=== PATIENT | male | born 1940 ===

== ENCOUNTER → 2017-05-19 | Outpatient (REF) ==
[~2017-05-19] MED LIST: DARVOCET N 101 UDTAB PO; FEOSOL65 MG PO; FOLIC ACID 40400 MCG PO; LISINOPRIL10 MG PO; LOPID600 MG PO; METAMUCIL SMOOT1 PDR PO; METOPROLOL50 MG PO; NEXIUM40 MG PO; NIASPAN500 MG PO; PLAVIX 75MG TAB75 MG PO; RELAFEN500 MG PO; VITAMIN C BUFF500 MG PO
[2017-05-19 16:09] LABS: PSA-TOTAL 1.01 ng/mL (0-4); THYROID STIMULATING HORMONE 2.53 uIU/mL (0.465-4.680)
== END ==
LOC: ZLAB.WCH 14:28
PROVIDERS: Internal Medicine Cardiovascular Disease
DX: Z01.89 Encounter for other specified special examinations (principal)
CPT/HCPCS: G0103

== ENCOUNTER → 2017-08-18 | Outpatient (REF) | LOC: ZLAB.WCH 19:35 | DX: Z01.89 Encounter for other specified special examinations (principal) ==

== ENCOUNTER → 2018-05-21 | Outpatient (REF) ==
[2018-05-21 16:43] LABS: PSA-TOTAL 1.26 ng/mL (0-4)
[2018-05-21 17:14] LABS: THYROID STIMULATING HORMONE 1.96 uIU/mL (0.465-4.680)
== END ==
LOC: ZLAB.WCH 15:53
PROVIDERS: Internal Medicine
DX: Z01.89 Encounter for other specified special examinations (principal)
CPT/HCPCS: G0103

== ENCOUNTER → 2018-11-13 | Outpatient (REF) | LOC: ZLAB.WCH 09:08 | DX: Z01.89 Encounter for other specified special examinations (principal) ==

== ENCOUNTER → 2018-12-13 | Outpatient (REF) | LOC: ZLAB.WCH 14:13 | DX: Z01.89 Encounter for other specified special examinations (principal) ==